=== PATIENT | male | born 1975 | race Caucasian/White ===

== ENCOUNTER 2023-07-25 01:49 | Emergency (ER) | payer OTHER ==
[~2023-07-25] VITALS: Ht 177.8 cm; Wt 70.0 kg
[2023-07-25 01:51] VITALS: BP 155/70; PULSE 108; RESP 16; TEMP 98.5; O2SAT 98
[2023-07-25] MEDS ORDERED: ACETAMINOPHEN 325MG TABLET PO STA (02:06)
[2023-07-25] MEDS ORDERED: SODIUM CHLORIDE 0.9% 1,000 ML IV ONE (02:15)
== END 2023-07-25 03:26 | disposition left against medical advice (07) ==
LOC: ER 02:44
DX: R07.89 Other chest pain (principal)
CPT/HCPCS: 99283; J7030